=== PATIENT | male | born 1965 | race Caucasian/White ===

== ENCOUNTER 2018-07-06 16:55 | Inpatient (IN) | payer SELFPAY ==
[~2018-07-06] VITALS: Ht 157.5 cm; Wt 77.1 kg
[2018-07-06] MEDS ORDERED: ONDANSETRON HCL 4MG/2ML INJ IV STA (17:19)
[2018-07-06] MEDS ORDERED: ENALAPRIL 2.5MG/2ML VIAL 2ML IV ONE (17:30)
[2018-07-06] MEDS ORDERED: LABETALOL 5MG/ML SYR 20 MG/4 ML SYRINGE IV ONE (17:30)
[2018-07-06 18:00] LABS: BASOPHILS % 0.6 % (0.0-2.0); EOSINOPHILS % 3.3 % (0.0-5.0); HEMATOCRIT. 40.2 % (42.0-52.0); HEMOGLOBIN. 13.7 g/dL (14.0-18.0); LYMPHOCYTES % 28.5 % (20.0-50.0); MEAN CORPUSCULAR HEMOGLOBIN 31.2 pg (28.0-32.0); MEAN CORPUSCULAR VOLUME 91.4 fL (80.0-94.0); MEAN PLATELET VOLUME 9.4 fl (7.4-10.4); MONOCYTES % 8.4 % (2.0-8.0); NEUTROPHILS % 59.2 % (40.0-76.0); PLATELET 263 x1000/uL (130-400); RED CELL DISTRIBUTION WIDTH 13.1 % (11.6-14.6)
[2018-07-06 18:02] LABS: CHLORIDE 110 mEq/L (98-107)
[2018-07-06 18:05] LABS: PROTHROMBIN TIME 10.2 sec (9.1-11.1)
[2018-07-06 18:06] LABS: ETHANOL BLOOD < 10 mg/dL
[2018-07-06 18:11] LABS: CREATINE KINASE 263 IU/L (39-308)
[2018-07-06] MEDS ORDERED: NICARDIPINE 50 MG in SODIUM CHLORIDE 0.9% 230 ML IV STA (18:26)
[2018-07-06] MEDS ORDERED: FUROSEMIDE 20MG/2ML VIAL IVP ONE (18:30)
[2018-07-06] MEDS ORDERED: NICARDIPINE 50 MG in SODIUM CHLORIDE 0.9% 230 ML IV NR (19:00)
[2018-07-06] MEDS ORDERED: CLONIDINE 0.1MG TABLET PO PRN (19:15)
[2018-07-06] MEDS ORDERED: ZOLPIDEM TARTRATE 5MG TABLET PO PRN (19:15)
[2018-07-06] MEDS ORDERED: IPRATROPIUM/ALBUTEROL 0.5-3(2.5)MG/3ML NEB INH PRN (19:15)
[2018-07-06] MEDS ORDERED: MAGNESIUM/ALUMINUM HYDROXIDE/SIMETHICONE 30ML UDC PO PRN (19:15)
[2018-07-06] MEDS ORDERED: NITROGLYCERIN 0.4MG TABLET SL SL PRN (19:15)
[2018-07-06] MEDS ORDERED: NA PHOS,M-B/NA PHOS,DI-BA ENEMA 118ML PR PRN (19:15)
[2018-07-06] MEDS ORDERED: DIPHENHYDRAMINE 50MG/ML VIAL IV PRN (19:15)
[2018-07-06] MEDS ORDERED: KETOROLAC 15MG/ML VIAL IV PRN (19:15)
[2018-07-06] MEDS ORDERED: ONDANSETRON 4MG ODT PO PRN (19:15)
[2018-07-06] MEDS ORDERED: CLONIDINE 0.3MG TABLET PO ONE (19:15)
[2018-07-06] MEDS ORDERED: GUAIFENESIN 200MG/10ML SUGAR FREE UDC PO PRN (19:15)
[2018-07-06] MEDS ORDERED: ACETAMINOPHEN 325MG TABLET PO PRN (19:15)
[2018-07-06] MEDS ORDERED: LORAZEPAM 0.5MG TABLET PO PRN (19:15)
[2018-07-07 00:35] VITALS: BP 154/89
[2018-07-07 04:00] VITALS: BP 134/86
[2018-07-07] MEDS: HYDRALAZINE HCL 50MG TABLET PO SCH ×3 (05:31→21:24)
[2018-07-07 07:03] LABS: CLARITY URINE CLEAR (CLEAR); COLOR URINE YELLOW (YELLOW); KETONES URINE NEGATIVE (NEGATIVE); LEUKOCYTE ESTERASE URINE TRACE (NEGATIVE); NITRITE URINE NEGATIVE (NEGATIVE); OCCULT BLOOD URINE TRACE (NEGATIVE); PROTEIN URINE 2+ (NEGATIVE); SPECIFIC GRAVITY URINE 1.011 (1.005-1.030); UROBILINOGEN URINE 0.2 E.U./dL (0.2-1.0)
[2018-07-07 07:22] LABS: *AMPHETAMINES SCREEN URINE NEGATIVE (NEGATIVE); *BARBITURATES SCREEN URINE NEGATIVE (NEGATIVE); *BENZODIAZEPINES SCREEN URINE NEGATIVE (NEGATIVE); *COCAINE SCREEN URINE NEGATIVE (NEGATIVE); METHADONE URINE SCREEN NEGATIVE (NEGATIVE)
[2018-07-07 07:23] LABS: CANNABINOID URINE SCREEN NEGATIVE (NEGATIVE); OPIATES URINE SCREEN NEGATIVE (NEGATIVE); PHENCYCLIDINE URINE SCREEN NEGATIVE (NEGATIVE)
[2018-07-07 08:00] VITALS: BP 145/102
[2018-07-07] MEDS: AMLODIPINE 10MG TABLET PO SCH (08:58)
[2018-07-07] MEDS: METOPROLOL TARTRATE 25MG TABLET PO SCH ×2 (08:58→21:25)
[2018-07-07] MEDS: FAMOTIDINE 20MG TABLET PO SCH (08:58)
[2018-07-07] MEDS: TAMSULOSIN HCL 0.4MG SR CAPSULE PO SCH ×2 (08:59→21:24)
[2018-07-07] MEDS: DUTASTERIDE 0.5MG CAPSULE PO SCH (08:59)
[2018-07-07] MEDS: ENOXAPARIN 40MG/0.4ML SYR SUBCUT SCH (08:59)
[2018-07-07 12:00] VITALS: BP 156/95
[2018-07-07 12:05] LABS: BASOPHILS % 0.5 % (0.0-2.0); HEMATOCRIT. 39.3 % (42.0-52.0); HEMOGLOBIN. 13.4 g/dL (14.0-18.0); LYMPHOCYTES % 28.8 % (20.0-50.0); MEAN CORPUSCULAR HEMOGLOBIN 31.3 pg (28.0-32.0); MEAN CORPUSCULAR VOLUME 91.7 fL (80.0-94.0); MEAN PLATELET VOLUME 9.5 fl (7.4-10.4); MONOCYTES % 13.2 % (2.0-8.0); NEUTROPHILS % 53.5 % (40.0-76.0); PLATELET 248 x1000/uL (130-400); RED BLOOD CELL COUNT 4.29 mill/uL (4.7-6.1); RED CELL DISTRIBUTION WIDTH 13.3 % (11.6-14.6)
[2018-07-07 12:45] LABS: CHLORIDE 106 mEq/L (98-107)
[2018-07-07 16:00] VITALS: BP 136/80
[2018-07-07 20:00] VITALS: BP 158/98
[2018-07-07] MEDS: TRAMADOL 50MG TABLET PO PRN (21:29)
[2018-07-08 04:00] VITALS: BP 130/79
[2018-07-08] MEDS: HYDRALAZINE HCL 50MG TABLET PO SCH ×3 (06:43→21:11)
[2018-07-08 08:00] VITALS: BP 119/72
[2018-07-08] MEDS: DUTASTERIDE 0.5MG CAPSULE PO SCH (08:41)
[2018-07-08] MEDS: TAMSULOSIN HCL 0.4MG SR CAPSULE PO SCH ×2 (08:41→21:11)
[2018-07-08] MEDS: FAMOTIDINE 20MG TABLET PO SCH (08:41)
[2018-07-08] MEDS: ENOXAPARIN 40MG/0.4ML SYR SUBCUT SCH (08:41)
[2018-07-08] MEDS: AMLODIPINE 10MG TABLET PO SCH (08:41)
[2018-07-08] MEDS: METOPROLOL TARTRATE 25MG TABLET PO SCH ×2 (08:41→21:11)
[2018-07-08 12:00] VITALS: BP 97/57
[2018-07-08 16:00] VITALS: BP 114/64
[2018-07-08 20:00] VITALS: BP 133/72
[2018-07-08] MEDS: TRAMADOL 50MG TABLET PO PRN (21:12)
[2018-07-09] VITALS: BP 129/85
[2018-07-09 04:00] VITALS: BP 129/85
[2018-07-09] MEDS: HYDRALAZINE HCL 50MG TABLET PO SCH (06:54)
[2018-07-09 08:00] VITALS: BP 131/77
[2018-07-09] MEDS: DUTASTERIDE 0.5MG CAPSULE PO SCH (09:04)
[2018-07-09] MEDS: TAMSULOSIN HCL 0.4MG SR CAPSULE PO SCH (09:04)
[2018-07-09] MEDS: METOPROLOL TARTRATE 25MG TABLET PO SCH (09:04)
[2018-07-09] MEDS: AMLODIPINE 10MG TABLET PO SCH (09:05)
[2018-07-09] MEDS: FAMOTIDINE 20MG TABLET PO SCH (09:05)
[2018-07-09] MEDS: ENOXAPARIN 40MG/0.4ML SYR SUBCUT SCH (09:05)
[2018-07-09 11:33] VITALS: BP 131/77
== END 2018-07-09 12:10 | disposition home or self-care (01) | DRG 465 ==
LOC: ER 18:01 → EDBEDREQ 18:30 → EDBD 20:02 → 5WST 20:02 → EDBEDREQ 20:03 → EDBEDREQSVC 20:03 → EDBEDREQTM 20:03 → ENRESERV 21:27
PROVIDERS: ADMIT Internal Medicine; ATTEND Internal Medicine
DX: N20.2 Calculus of kidney with calculus of ureter (principal); N17.0 Acute kidney failure with tubular necrosis; I16.1 Hypertensive emergency; I10 Essential (primary) hypertension; N40.0 Benign prostatic hyperplasia without lower urinary tract symptoms; Z79.899 Other long term (current) drug therapy
CPT/HCPCS: 36415; 70450; 71045; 74176; 76770; 80053; 80061; 80305; 81003; 82550; 82553; 83036; 83690; 83735; 83880; 84484; 85025; 85610; 93005; 93970; 96365; 96375; 99291; G0482; J1650; J1940; J2405; J3490; J7050